=== PATIENT | male | born 1965 | race Caucasian/White ===

== ENCOUNTER 2020-10-22 17:43 | Emergency (ER) | payer BC, SELFPAY ==
[2020-10-22 18:01] VITALS: BP 134/117; PULSE 71; RESP 16; TEMP 36.6; O2SAT 99
--- NOTE | 2020-10-22 19:02 | ED.WOUNDLAC ---
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 Just prior to his arrival today he was seen up the street at [facility]. They told him that he needed to see a specialist and that he should proceed from there urgent care to [facility] for further evaluation and treatment in the ER. Patient states that he does not want to go to [facility] and wanted to come to our urgent care for a second opinion. After the initial injury, patient wrapped his wrist and electrical tape to stop the bleeding. He forgot to take his watch off as well. He is not up-to-date on his tetanus vaccine. He denies numbness or tingling in his arm or hand. He is currently pain-free. He has not tried any [id number] treatment prior to arrival. Related Data Home Medications Medication Instructions Recorded Confirmed icosapent ethyl [Vascepa] 0.5 g PO DAILY 10/22/20 10/22/20 lisinopril 20 mg PO DAILY 10/22/20 10/22/20 simvastatin 40 mg PO DAILY 10/22/20 10/22/20 Allergies Allergy/AdvReac Type Severity Reaction Status Date / Time No Known Allergies Allergy Verified 10/22/20 18:36 Review of Systems Review of Systems: Narrative: CONSTITUTIONAL: Denies body aches, fever, chills, or sweats. EYES: Denies visual changes, redness, or discharge. ENT: Denies rhinorrhea, congestion, sore throat, or otalgia. CARDIOVASCULAR: Denies chest pain, palpitations, or edema. RESPIRATORY: Denies cough or dyspnea. GASTROINTESTINAL: Denies abdominal pain, nausea, vomiting, or diarrhea. GENITOURINARY: Denies dysuria or hematuria. SKIN: Denies rash, itching. + Left wrist laceration MUSCULOSKELETAL: Denies back pain, joint pain, or myalgia. NEUROLOGIC: Denies headache, numbness, tingling, or weakness. PSYCH: Denies depression or anxiety. [facility] Past Medical History Medical History (Updated 10/23/20 @ 17:12 by Breanna Garsia, [facility], ) High cholesterol Hypertension Family History Family History (Updated 12/24/15 @ 23:21 by DOCTOR UNKNOWN) Mother Family history of diabetes mellitus in first degree relative Hypertension Father Family history of heart disease in male family member before age 55 Patient's father is Sibling Patient's sister is in good health Other Cerebrovascular accident Social History Social History Alcohol intake: current Gender identity (if verbalized by the patient): Male Comments At time of signature, I have reviewed and agree with nursing past medical, surgical, social and family history unless otherwise noted. Please see nursing chart for further information. There is no relevant family history pertinent to the presenting complaint Exam Narrative: Exam Narrative: GENERAL: Well-appearing, well-nourished, and in no acute distress. HEAD: Normocephalic, atraumatic. EYES: EOMI. No redness or drainage. Conjunctivae normal. ENT: Mucous membranes pink and moist. NECK: Normal AROM. CHEST: No respiratory distress. EXTREMITIES: Left wrist: Distal radius?1.5cm x3mm clotted linear laceration. There are some linear areas of ecchymosis that run horizontally around the wrist, consistent with being wrapped in electrical tape. Patient does have some scant to mild edema of the hand. Hand is soft. No active bleeding. Distal sensation intact. Capillary refill normal. Radial pulse is strong. Patient has full range of motion of all fingers and the wrist. At this time, there are no signs of infection such as erythema or induration. No active drainage. SKIN: Warm, dry, no rash. Capillary refill normal. Normal skin turgor. NEURO: No focal deficits. Alert and
[2020-10-22] MEDS: TETANUS,DIPHTHERIA,AC PERTUSSIS ADULT (0.5 ML) BOOSTRIX IM (19:09)
[2020-10-22 19:24] VITALS: BP 142/97
== END 2020-10-22 19:24 | disposition home or self-care (01) ==
PROVIDERS: Emergency Provider Nurse Practitioner; PCP Family Medicine Sports Medicine
DX: S61.512A Laceration without foreign body of left wrist, initial encounter (principal); Z23 Encounter for immunization; I10 Essential (primary) hypertension; E78.00 Pure hypercholesterolemia, unspecified; W27.0XXA Contact with workbench tool, initial encounter
CPT/HCPCS: 90471; 90715; 99213; G0463

== ENCOUNTER 2021-01-07 18:49 | Emergency (ER) | payer BC, SELFPAY ==
--- NOTE | ~2021-01-07 | XR_ITS ---
EXAMINATION: XR knee LT min 4V DATE: 01/07/2021 19:33 INDICATION: Left knee pain post fall from ladder onto concrete TECHNIQUE: Anteroposterior, sunrise, oblique and crosstable lateral views of the left knee were obtai markus COMPARISON: None. 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 Co mminuted intra-articular fractures involving the caudal half of the patella. There is mild displaceme nt of fragments with 3 mm wide fracture gap along the is central articular surface on the lateral pro jection. No other fractures. Joint spaces appear normal on nonweightbearing imaging. Moderate-sized l eft knee joint effusion. Prominent prepatellar soft tissue swelling. 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 IMPRESSION: 1. 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 Reviewed, dictated and finalized at location A. IMPRESSION: 1. Developmental bipartite patella with mildly displaced comminuted intra-artic ular fracture of the caudal half of the patella.
[2021-01-07 19:15] VITALS: BP 150/92; PULSE 79; RESP 18; TEMP 36.7; O2SAT 100
--- NOTE | 2021-01-07 19:59 | ED.GENADULT ---
HPI - General Adult General Chief complaint: Extremity Injury, Lower Stated complaint: left knee injury Time Seen by Provider: 01/07/21 19:51 History of Present Illness HPI narrative: Patient is a 55-year-old gentleman who presents the emergency department with chief complaint of left knee pain. Patient reports he was climbing up a ladder and fell approximately 3 feet and landed on his left knee. The patient reports pain whenever he attempts to move his knee reports there is swelling in the patellar area and reports there is also pain in the posterior aspect of his knee. Patient states pain is worse with movement and improved with rest. Patient denies head injury denies loss of consciousness reports no other injuries Related Data Home Medications Medication Instructions Recorded Confirmed icosapent ethyl [Vascepa] 0.5 g PO DAILY 10/22/20 10/22/20 lisinopril 20 mg PO DAILY 10/22/20 10/22/20 simvastatin 40 mg PO DAILY 10/22/20 10/22/20 Allergies Allergy/AdvReac Type Severity Reaction Status Date / Time No Known Allergies Allergy Verified 01/07/21 19:55 Review of Systems Review of Systems: A 10 system review of systems was completed on the patient and is negative except for what is stated in the HPI. Nursing and ancillary documentation was reviewed. [facility] Past Medical History Medical History High cholesterol Hypertension Family History Family History Mother Family history of diabetes mellitus in first degree relative Hypertension Father Family history of heart disease in male family member before age 55 Patient's father is Sibling Patient's sister is in good health Other Cerebrovascular accident Social History Social History Alcohol intake: current Gender identity (if verbalized by the patient): Male Exam Narrative: GENERAL: Well-appearing, well-nourished, and in no acute distress. HEAD: Normocephalic, atraumatic. EYES: PERRLA and EOMI. ENT: Nares clear, no rhinorrhea or epistaxis. Mucous membranes moist. NECK: Supple. CHEST: Clear to auscultation. No respiratory distress. HEART: Regular rate and rhythm. No murmur heard. Normal peripheral pulses. ABDOMEN: Soft, nontender, nondistended, normal active bowel sounds. EXTREMITIES: Normal range of motion. No edema. There is tenderness to palpation and swelling of the left knee. SKIN: Warm, dry, no rash. NEURO: No focal deficits. Alert and oriented x3. PSYCH: Normal mood and affect. Course Course Emergency Course: Plain film x-ray shows a patellar fracture Vital Signs Vital signs: Vital Signs Temperature 36.7 C 01/07/21 19:15 Pulse Rate 79 01/07/21 19:15 Respiratory Rate 18 01/07/21 19:15 Blood Pressure 150/92 H 01/07/21 19:15 Pulse Oximetry 100 01/07/21 19:15 Temperature 36.7 C 01/07/21 19:15 Pulse Rate 79 01/07/21 19:15 Respiratory Rate 18 01/07/21 19:15 Blood Pressure 150/92 H 01/07/21 19:15 Pulse Oximetry 100 01/07/21 19:15 Medical Decision Making Vital Signs Vital Signs: Vital Signs Temperature 36.7 C 01/07/21 19:15 Pulse Rate 79 01/07/21 19:15 Respiratory Rate 18 01/07/21 19:15 Blood Pressure 150/92 H 01/07/21 19:15 Pulse Oximetry 100 01/07/21 19:15 Temperature 36.7 C 01/07/21 19:15 Pulse Rate 79 01/07/21 19:15 Respiratory Rate 18 01/07/21 19:15 Blood Pressure 150/92 H 01/07/21 19:15 Pulse Oximetry 100 01/07/21 19:15 Discharge Plan Discharge Clinical Impression: Closed fracture of left patella Qualifiers: Encounter type: initial encounter Fracture morphology: unspecified fracture morphology Fracture alignment: nondisplaced Qualified Code(s): S82.002A - Unspecified fracture of left patella, initial encounter for closed fracture Patient D
[2021-01-07] MEDS: HYDROcodone/acetaminophen (*CRX) 5-325 MG TABLET 1 TAB PO ×2 (20:04→21:07)
[2021-01-07 21:20] VITALS: BP 149/99; PULSE 84; RESP 16; O2SAT 98
== END 2021-01-07 21:36 | disposition home or self-care (01) ==
PROVIDERS: Emergency Provider Emergency Medicine; PCP Family Medicine Sports Medicine
DX: S82.042A Displaced comminuted fracture of left patella, initial encounter for closed fracture (principal); E78.00 Pure hypercholesterolemia, unspecified; I10 Essential (primary) hypertension; W11.XXXA Fall on and from ladder, initial encounter
CPT/HCPCS: 73564; 99284; A9270